=== PATIENT | female | born 1995 | race Caucasian/White ===

== ENCOUNTER 2018-08-12 01:43 | Emergency (ER) | payer OTHER ==
[~2018-08-12] VITALS: Ht 160 cm; Wt 54.4 kg
[2018-08-12 03:53] VITALS: BP 110/77
== END 2018-08-12 03:53 | disposition home or self-care (01) ==
LOC: ED 01:43
DX: R00.2 Palpitations (principal); R55 Syncope and collapse; R11.0 Nausea; Z98.890 Other specified postprocedural states
CPT/HCPCS: Q0162

== ENCOUNTER 2019-08-09 13:10 | Emergency (ER) | payer OTHER ==
[~2019-08-09] VITALS: Ht 160 cm; Wt 47.6 kg
[2019-08-09 13:22] VITALS: Ht 160 cm; Wt 47.6 kg
[2019-08-09 13:48] LABS: BASOPHIL % 0.6 % (0-2); RED CELL DISTRIBUTION WIDTH 12.7 % (11.5-14.5)
[2019-08-09 13:52] LABS: CALCIUM 8.2 mg/dL (8.5-10.1); CARBON DIOXIDE 27.3 mmol/L (21-32); CHLORIDE SERUM 104 mmol/L (98-107); CREATININE SERUM 0.5 mg/dL (0.6-1.0); GFR1 > 60 mL/min; GLUCOSE SERUM 87 mg/dL (74-106); POTASSIUM SERUM 3.7 mmol/L (3.5-5.1); SODIUM SERUM 138 mmol/L (136-145)
[2019-08-09 13:57] LABS: ALKALINE PHOSPHATASE 122 U/L (46-116); ALT/SGPT 41 U/L (14-59); AST/SGOT 52 U/L (15-37); BILIRUBIN TOTAL 0.7 mg/dL (0.20-1.00)
[2019-08-09 13:59] LABS: ALBUMIN 1.8 g/dL (3.4-5.0)
[2019-08-09 14:02] LABS: UA SPECIFIC GRAVITY <=1.005 (1.005-1.035); microscopic required? YES; urine erythrocyte NEGATIVE (NEGATIVE)
[2019-08-09 14:10] LABS: AMPHETAMINE QUAL UR NONE DETECTED (See below)
[2019-08-09 14:18] LABS: PLATELET COUNT 579 x10^3mcL (130-400)
[2019-08-09] MEDS ORDERED: MAGNESIUM100 MG (15:30)
[2019-08-09] MEDS ORDERED: PROTONIX20 MG (15:31)
[2019-08-09] MEDS ORDERED: REG5 (15:31)
[2019-08-09] MEDS ORDERED: PROA (15:32)
[2019-08-09] MEDS ORDERED: ZINC50 M4 (15:32)
[2019-08-09 16:43] LABS: T3 TOTAL 0.72 ng/mL
[2019-08-09 17:23] LABS: FREE T4 0.8 ng/dL (0.76-1.46); FREE THYROXINE INDEX 1.2 ug/dL (1.4-4.5); T4(THYROXINE) 3.1 ug/dL (4.7-13.3)
[2019-08-09 17:32] LABS: RED BLOOD CELLS 3.79 M/mm3 (4.10-5.10)
[2019-08-09 18:10] LABS: IRON 56 ug/dL (50-170)
[2019-08-09 18:11] LABS: TOTAL IRON BINDING CAPACITY 100 ug/dL (250-450)
[2019-08-10 00:05] VITALS: BP 126/76
== END 2019-08-10 00:05 | disposition left against medical advice (07) ==
LOC: ED 13:10 → DU 15:37 → ED 15:37 → IC 18:10 → ED 18:10 → IC 08-10 00:39
PROVIDERS: Emergency Medicine; Internal Medicine
DX: A41.9 Sepsis, unspecified organism (principal); R65.20 Severe sepsis without septic shock; J11.1 Influenza due to unidentified influenza virus with other respiratory manifestations; R00.0 Tachycardia, unspecified; Z90.89 Acquired absence of other organs
CPT/HCPCS: 84439; 87804; G0378; J1720; J1885; J2060; J2270; J2405; J2543; J2765; J7030; Q0092